=== PATIENT | female | born 1960 | race Caucasian/White ===

== ENCOUNTER 2022-03-30 17:34 | Emergency (ER) | payer OTHER, SELFPAY ==
--- NOTE | ~2022-03-30 | XR_ITS ---
XR knee RT min 4V DATE: 03/30/2022 18:00 INDICATION: Injury one month one week ago. Pain distal to patella. TECHNIQUE: 4 views including crosstable lateral COMPARISON: None FINDINGS: There is mild periarticular spurring at the medial compartment consistent with mild osteoar thritis. No fracture or dislocation or joint effusion is detected. No periosteal reaction or bone destruction. No radiopaque intra-articular loose body or calcinosis. 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
[2022-03-30 17:46] VITALS: BP 152/74; PULSE 58; RESP 18; TEMP 37.3; O2SAT 100
[2022-03-30 17:50] VITALS: BP 152/74; PULSE 58; RESP 18; TEMP 37.3; O2SAT 100
--- NOTE | 2022-03-30 17:59 | ED.LOWEXIN ---
HPI - Extremity Injury (Lower) General Chief Complaint: Extremity Injury, Lower Stated Complaint: Rt Knee Pain Time Seen by Provider: 03/30/22 17:59 Source: patient Mode of arrival: ambulatory Limitations: no limitations History of Present Illness HPI Narrative: 61 yo F presents with c/o R knee pain. States 1 month ago she fell down 1 step, R knee gave out and fell onto both knees. Has pain for a few days to a week and then resolved. States other day was on her knees putting books away on her shelf and she twisted and felt pain to R knee. States when getting up she feels pain to anterior aspect R knee. After walking a bit pain is better. Has been taking ibuprofen in the morning and at night before bed. States wakes up in middle of night and R knee throbbing. NO swelling. All systems reviewed and negative except as noted above. Related Data Home Medications Medication Instructions Recorded Confirmed No Home Medications 03/30/22 03/30/22 Allergies Allergy/AdvReac Type Severity Reaction Status Date / Time No Known Allergies Allergy Verified 03/30/22 17:49 Review of Systems Review of Systems: CONSTITUTIONAL: Denies fever, chills, or sweats. EYES: Denies visual changes, redness, or discharge. ENT: Denies rhinorrhea, congestion, sore throat, or otalgia. CARDIOVASCULAR: Denies chest pain, palpitations, or edema. RESPIRATORY: Denies cough or dyspnea. GASTROINTESTINAL: Denies abdominal pain, nausea, vomiting, or diarrhea. GENITOURINARY: Denies dysuria or hematuria. SKIN: Denies rash or itching. MUSCULOSKELETAL: Denies back pain, joint pain, or myalgia. Reports pain to right knee. NEUROLOGIC: Denies headache, numbness, or weakness. PSYCHIATRIC: Denies anxiety or depression. All other systems reviewed are negative, except as documented in HPI. PMFSH Comments At time of signature, agree with nursing past medical, surgical, social and family history. There is no relevant family history pertinent to the presenting complaint. Exam Narrative: GENERAL: This is a well-nourished, well-developed patient, in no apparent distress. HEAD: normocephalic, atraumatic. EYES: PERRL. Sclera clear/white. Vision is grossly intact. EARS: External ears normal NOSE: External nose normal NECK: Neck supple, non-tender without lymphadenopathy, masses or thyromegaly. CARDIOVASCULAR: Regular rate and rhythm without murmurs, gallops, or rubs. RESPIRATORY: Clear to auscultation. Breath sounds equal bilaterally. No wheezes, rales, or rhonchi. SKIN: warm, Dry, intact with no suspicious lesions or rash, good texture and turgor. NEURO: awake, alert, and oriented to person, place and time. There were no obvious focal neurologic abnormalities. EXTREMITIES: No joint tenderness, effusion, or edema noted. No tenderness on palpation of R knee. Pain to patellar tendon with flexion but not extension. No swelling noted. Denies anterior/posterior drawer test. no instablity noted. Course Course Level of Care: Express Care Visit Vital Signs Vital signs: Vital Signs Temperature 37.3 C 03/30/22 17:46 Pulse Rate 58 L 03/30/22 17:46 Respiratory Rate 18 03/30/22 17:46 Blood Pressure 152/74 H 03/30/22 17:46 Pulse Oximetry 100 03/30/22 17:46 Oxygen Delivery Room Air 03/30/22 17:46 Temperature 37.3 C 03/30/22 17:50 Pulse Rate 58 L 03/30/22 17:50 Respiratory Rate 18 03/30/22 17:50 Blood Pressure 152/74 H 03/30/22 17:50 Pulse Oximetry 100 03/30/22 17:50 Oxygen Delivery Room Air 03/30/22 17:50 reviewed. MDM - Extremity Injury (Lower) MDM Narrative Medical decision making narrative: discussed x-ray results with pt. recommend RICE. ibuprofen every 6 hours. follow up with PCP if pain not improving. Patient is aware of diagnosis, understands and agrees to treatment plan. Anticipatory guidance given. Patient agrees to follow-up as directed and is aware of reasons to seek care at the emergency department. Portions of this
== END 2022-03-30 18:19 | disposition home or self-care (01) ==
PROVIDERS: Emergency Provider Nurse Practitioner Family; PCP Family Medicine
DX: M17.11 Unilateral primary osteoarthritis, right knee (principal); X50.9XXA Other and unspecified overexertion or strenuous movements or postures, initial encounter; S76.111A Strain of right quadriceps muscle, fascia and tendon, initial encounter
CPT/HCPCS: 73564; 99203; G0463

== ENCOUNTER 2022-07-14 10:24 | Emergency (ER) | payer OTHER, SELFPAY ==
[2022-07-14 10:34] VITALS: BP 133/94; PULSE 100; RESP 20; TEMP 37.6; O2SAT 100
[2022-07-14 10:55] VITALS: BP 108/61; PULSE 116; RESP 20; TEMP 37.3; O2SAT 100
--- NOTE | 2022-07-14 11:09 | ED.URI ---
HPI - URI/Sore Throat General Chief Complaint: Upper Respiratory Infection Stated Complaint: Congestion,Body Aches,Fatigue Time Seen by Provider: 07/14/22 11:04 Source: patient and RN notes reviewed Mode of arrival: ambulatory Limitations: no limitations History of Present Illness HPI Narrative: 62-year-old female presents for complaint of headache, body aches, sinus pressure/congestion, cough, subjective fever/chills. onset yesterday. endorses sick contacts at work with unknown illness. She is not vaccinated for COVID. She denies shortness with, wheezing, vomiting, diarrhea. MD elicited complaint: cough Related Data Home Medications Medication Instructions Recorded Confirmed No Home Medications 03/30/22 07/14/22 Allergies Allergy/AdvReac Type Severity Reaction Status Date / Time No Known Allergies Allergy Verified 07/14/22 10:45 Review of Systems Review of Systems: CONSTITUTIONAL: Endorses malaise, chills, sweats, fever EYES: Denies visual changes, redness, or discharge ENT: Reports rhinorrhea, congestion, sinus pain, sore throat CARDIOVASCULAR: Denies chest pain, palpitations, edema RESPIRATORY: Reports cough, post nasal drainage. Denies dyspnea GASTROINTESTINAL: Denies abdominal pain, nausea, vomiting, diarrhea SKIN: Denies rash or itching MUSCULOSKELETAL: Endorses myalgia NEUROLOGIC: reports headache Exam Narrative: GENERAL: Ill-appearing, nontoxic EYES: PERRLA, conjunctivae clear ENT: Mucous membranes moist. TMs pearly morris with dull light reflex bilaterally; no tragal tenderness. Oropharynx normal; no drooling, no hoarseness, no trismus, uvula midline. NECK: Supple. No lymphadenopathy CHEST: Clear to auscultation, breath sounds equal. HEART: Regular rate and rhythm. No murmur heard. SKIN: Warm, dry, no rash. NEURO: Alert and oriented x3. PSYCH: Normal mood and affect Course Course Emergency Course: Patient is aware of diagnosis, understands and agrees to treatment plan. Anticipatory guidance given. Patient agrees to follow-up as directed and is aware of reasons to seek care at the emergency department. Portions of this record may have been created with voice recognition software Level of Care: Express Care Visit Vital Signs Vital signs: Vital Signs Temperature 99.7 F H 07/14/22 10:34 Pulse Rate 100 07/14/22 10:34 Respiratory Rate 20 07/14/22 10:34 Blood Pressure 133/94 H 07/14/22 10:34 Pulse Oximetry 100 07/14/22 10:34 Oxygen Delivery Room Air 07/14/22 10:34 Temperature 99.1 F 07/14/22 10:55 Pulse Rate 116 H 07/14/22 10:55 Respiratory Rate 20 07/14/22 10:55 Blood Pressure 108/61 07/14/22 10:55 Pulse Oximetry 100 07/14/22 10:55 Oxygen Delivery Room Air 07/14/22 10:55 reviewed MDM - URI/Sore Throat MDM Narrative Medical decision making narrative: COVID-positive, results reviewed with patient. Advised supportive measures and signs/symptoms to go to the ER. Pt is appropriate for outpt treatment and f/u. Differential Diagnosis Differential diagnosis: Likely upper respiratory infection, sinusitis and viral infection Discharge Plan Discharge Clinical Impression: COVID-19 Patient Disposition: Home, Self-Care Condition: Stable Instructions: Antibiotic Form, COVID-19 (Coronavirus Disease 2019) (ED) Additional Instructions: Your rapid COVID test was positive today. The following recommendations have been made by the CDC and local Health Departments, regarding COVID-19: -Those individuals with mild cases of COVID-19 can generally be discontinued from isolation 5 days AFTER the onset of symptoms AND the resolution of fever for 24hrs (without the use of fever-reducing medications)* -When you return to public, wear a mask at all times for an additional 5 days Rest, stay hydrated. Tylenol 1000mg every 8 hours as needed for pain/fever; alternate with ibuprofen 600mg every 8 hours as needed Flonase/nasal spray, Zyrtec, cough syrup c
--- NOTE | 2022-07-14 18:59 | PC.NURSE ---
The 2nd set of vitals entered at 1055 were entered in error and I cannot be corrected or edited.
== END 2022-07-14 11:12 | disposition home or self-care (01) ==
PROVIDERS: Emergency Provider Nurse Practitioner Family; PCP Family Medicine
DX: U07.1 COVID-19 (principal)
CPT/HCPCS: 87426; 99213; C9803; G0463

== ENCOUNTER 2023-05-25 13:32 | Emergency (ER) | payer OTHER, SELFPAY ==
--- NOTE | 2023-05-25 13:48 | ED.URI ---
HPI - URI/Sore Throat General Chief Complaint: Upper Respiratory Infection Stated Complaint: sorethroat Time Seen by Provider: 05/25/23 13:50 Source: patient, RN notes reviewed and old records reviewed Mode of arrival: ambulatory Limitations: no limitations History of Present Illness HPI Narrative: 63-year-old female presents to the [facility] with complaints of a sore throat intermittently that started 3 days ago. Denies fevers. Currently no pain. Has take Advil Related Data Home Medications Medication Instructions Recorded Confirmed No Home Medications 03/30/22 05/25/23 Allergies Allergy/AdvReac Type Severity Reaction Status Date / Time No Known Allergies Allergy Verified 07/14/22 10:45 Review of Systems Review of Systems: All systems reviewed & are unremarkable except as noted in HPI and below Constitutional: Constitutional: Reports no additional constitutional complaints Eyes: Eyes: Reports no additional eye complaints ENT: Reports as per HPI and Reports sore throat Cardiovascular: Cardiovascular: Reports no additional cardiovascular complaints, Denies chest pain and Denies dyspnea Respiratory: Respiratory: Reports no additional respiratory complaints, Denies chest congestion, Denies cough and Denies dyspnea Gastrointestinal: Gastrointestinal: Reports no additional gastrointestinal complaints, Denies abdominal pain, Denies nausea and Denies vomiting Musculoskeletal: Musculoskeletal: Reports no additional musculoskeletal complaints Integumentary/Breasts: Skin/Breast: Reports system reviewed and no additional complaints, except as docu Neurologic: Reports system reviewed and no additional complaints, except as documented Psychiatric: Psychiatric: Reports no additional psychiatric complaints Allergic/Immunologic: Allergic/Immunologic: Reports no additional allergic/immunologic complaints PMFSH Comments At the time of my signature, I reviewed and agree with the nursing past medical, surgical, social, and family history. There is no relevant family history pertinent to the patient complaint. Exam Const: General: cooperative, healthy appearing, comfortable, no acute distress, well developed, alert and well nourished Nutritional Appearance: well nourished Orientation/consciousness: patient oriented x3 Limitations: no limitations HENMT: Head: normal to inspection Ears: hearing grossly normal bilaterally, external ears normal, TM's normal bilaterally and EAC's normal Face/Nose/Sinus: Normal external nose present, Normal nares present, Normal nasal mucous membranes and turbinates present, normal facial exam and face symmetric Face and sinus: normal facial exam and face symmetric Mouth: Yes Normal oral and palatal mucosa present, Yes lip normal, Yes tongue normal and Yes moist mucous membranes Throat: posterior oropharynx normal, tonsils normal and uvula midline Eyes: General: appearance normal, both eyes and all related structures Alignment and Position: alignment normal Periorbital: periorbital findings normal Pupils: Equal, round and reactive pupils present EOM: EOMs intact bilaterally Neck: Neck: normal visual inspection, full ROM, no lymphadenopathy and no meningeal signs Chest: Chest palpation & inspection: normal inspection of the chest Resp: Effort & Inspection: normal respiratory effort and able to speak in complete sentences Auscultation: clear to auscultation bilaterally, no crackles, no rales, no rhonchi and no wheezes Cardio: Rate: regular rate Rhythm: regular rhythm Back/Spine/Pelvis: Cervical Spine: cervical ROM normal Skin: General skin exam: normal color and no rashes or lesions noted Lesions: no lesions Rashes: no rashes Wounds: no wounds Neuro: General: patient oriented x3, gait normal, tone normal, moves all extremities and no meningeal signs Cranial nerves: Yes Equal, round and reactive pupils present Cognition (Neuro): normal cognition Speech: normal speech Gait exam
[2023-05-25 13:50] VITALS: BP 156/79; PULSE 72; RESP 16; TEMP 37.1; O2SAT 99
== END 2023-05-25 14:51 | disposition home or self-care (01) ==
PROVIDERS: Emergency Provider Nurse Practitioner; PCP Family Medicine
DX: J02.9 Acute pharyngitis, unspecified (principal)
CPT/HCPCS: 87081; 87880; 99213; G0463